=== PATIENT | female | born 1985 | race Hispanic/Latino ===

== ENCOUNTER 2024-09-20 21:27 | Emergency (ER) | payer BC ==
[~2024-09-20] VITALS: Ht 160 cm; Wt 47.2 kg
--- NOTE | 2024-09-20 21:34 | NUR ---
UA CUP PROVIDED
[2024-09-20] MEDS ORDERED: 0.9%NACL 1000ML 1,000 ML IV ONE (22:00)
--- NOTE | 2024-09-20 22:45 | HMCIMG ---
EXAM: CR Chest, 1 view CLINICAL HISTORY: Chest pain. COMPARISON: None provided. FINDINGS: The lungs show no infiltrates or other acute findings. No pleural effusion or pneumothorax. The cardiomediastinal silhouette is within normal limits. No acute osseous abnormality. IMPRESSION: No acute cardiopulmonary process is evident. /[place]
[2024-09-20 22:51] LABS: IMMATURE GRANULOCYTE ABSOLUTE 0.04 K/uL (0-1); NUCLEATED RED BLOOD CELLS 0.0 % (0.0-0.19); PLATELET COUNT (AUTO) 371 K/uL (130-400); RED BLOOD CELL COUNT(AUTO) 4.21 MIL/uL (4.00-5.50); RED CELL DISTRIBUTION WIDTH 11.6 % (11.0-15.5); WHITE BLOOD COUNT (AUTO) 9.6 K/uL (4.8-10.8)
[2024-09-20 22:53] LABS: ADD UA MICROSCOPIC YES; APPEARANCE,URINE CLEAR (CLEAR); GLUCOSE, URINE (UA) NEGATIVE (NEGATIVE); LEUKOCYTE ESTERASE ,URINE NEGATIVE Leu/uL (NEGATIVE); NITRATE,URINE NEGATIVE (NEGATIVE); OCCULT BLOOD,URINE MODERATE (NEGATIVE)
[2024-09-20 22:57] LABS: CREATININE 0.5 mg/dL (0.5-1.0); GLOMERULAR FILTR. RATE CALC 122.0 mL/min (>90); GLUCOSE,RANDOM 104.0 mg/dL (70-105); SODIUM SERUM 138.0 mmol/L (136-145); UREA NITROGEN, BLOOD 9.0 mg/dL (7-18)
[2024-09-20 23:01] LABS: HCG,QUALITATIVE URINE NEGATIVE (NEGATIVE)
[2024-09-20 23:02] LABS: CREATINE KINASE, TOTAL 45.0 U/L (21-232)
[2024-09-20] MEDS: ASPIRIN 325MG TAB PO ONE (23:37)
--- NOTE | 2024-09-21 00:21 | ERN ---
ED Note History of Present Illness Stated Complaint: PALPITATIONS, CP Chief Complaint: Chest Pain Time Seen by MD: 21:32 Time Seen by Midlevel: 21:32 Dictation: The patient is a 39-year-old female with a history of hypothyroidism who presents to the emergency department with complaints of palpitations onset an hour ago. Patient reports he occasionally has palpitations but this time she felt him longer and more frequent. Reports some nausea and some chest pressure. Allergies: Coded Allergies: Sulfa (Sulfonamide Antibiotics) (Unverified Allergy, Unknown, 07/07/24) quinine (Unverified Allergy, Unknown, 07/07/24) Past Medical History Past Medical History: Hypothyroid, Other Additional Past Medical Hx: MITRAL VALVE PROLAPSE Surgical History: None RN Note Reviewed/Agreed w/PFSH: Yes Review of System Dictation Constitutional: Negative for fever,chills, and weight loss Eyes: Negative for injury, pain,redness, and discharge ENT: Negative for injury,pain or swelling Cardiovascular: Negative for and edema positive for palpitations, chest pain Respiratory: Negative for shortness of breath, cough, and wheezing, Abdomen/GI: Negative for abdominal pain, nausea, vomiting, diarrhea, and constipation Back: Negative for injury and pain : Negative for injury, bleeding and discharge MS/Extremity: Negative for injury and deformity Skin: Negative for rash, and discoloration Neuro: Negative for headache, weakness, numbness, tingling, and seizure Psych: Negative for suicide ideation, homicidal ideation, and hallucinations Initial Vital Sign VS Vital Signs Date Time Temp Pulse Resp B/P (MAP) Pulse Ox O2 Delivery O2 Flow Rate FiO2 09/20/24 21:29 97.2 110 20 109/76 100 Room Air Physical Exam Dictation Vital Signs reviewed General Appearance: Alert, oriented x 3, no acute distress, well developed, nourished. Head and Face: non-traumatic. Eyes: PERRL, pink conjunctivas, eyelid no trauma, anterior chamber with arcus senilis. Ears: Pinnas intact and no signs of trauma or erythema ear canals clear and no discharge TM no erythema Nose: No discharge, no bleeding. Oropharynx: Mouth normal, tongue pink. pharynx clear,no erythema, tonsils no exudates, no abscesses noted, mucous membrane moist Neck: Supple, non-tender, no thyromegaly, no masses, no JVD, no bruits Breast:Deferred Chest:No tenderness, no crepitus, no paradoxical movement, no retractions Lungs:Clear, well-ventilated, symmetric, no rales, no wheezing, no rhonchi, no stridor, good breath sounds bilaterally Heart: Regular rate, regular rhythm, no murmur, no gallops Vascular: no peripheral edema, Abdomen: Soft, positive bowel sounds, nondistended, no guarding, nontender, no rebound, no masses no hepatomegaly, no splenomegaly, no Gerard's sign, no hernias. Rectal: Deferred Genital: Deferred Neurological: Normal speech, motor function intact, sensory function intact Musculoskeletal: Neck nontender, full range of motion, back nontender, full range of motion, Extremities: nontender, full range of motion Skin: Color pink, dry, no turgor, no rash, no lacerations, no abrasions, no cont usions. Lymphatic: Deferred Results (Laboratory/Radiology) Laboratory/Radiology Laboratory Tests Test 09/20/24 22:25 09/20/24 23:56 White Blood Count 9.6 K/uL (4.8-10.8) Red Blood Count 4.21 MIL/uL (4.00-5.50) Hemoglobin 12.5 g/dL (12.0-16.0) Hematocrit 37.7 % (36-48) Mean Corpuscular Volume 89.5 fL (79-99) Mean Corpuscular Hemoglobin 29.7 pg (27.0-33.0) Mean Corpuscular Hemoglobin Concent 33.2 g/dL (32.0-36.0) Red Cell Distribution Width 11.6 % (11.0-15.5) Platelet Count 371 K/uL (130-400) Mean Platelet Volume 10.1 fL (7.5-10.5) Immature Granulocyte % (Auto) 0.4 % (0-1) Neutrophils (%) (Auto) 65.8 % (40.0-77.0) Lymphocytes (%) (Auto) 24.5 % (21.0-51.0) Monocytes (%) (Auto) 7.5 % (3.0-13.0) Eosinophils (%) (Auto) 1.4 % (0.0-8.0) Basophils (%) (Auto) 0.4 % (0.0-5.0) Neutrophils # (Auto) 6.3 K/uL (1.8-7.7) Lymphocytes # (Auto) 2.4 K/uL (1.0-4.8) Monocytes # (Auto) 0.7 K/uL (0.1-1.0) Eosinophils # (Auto) 0.13 K/uL (0.00-0.70) Basophils # (Auto) 0.04 K/uL (0.00-0.20) Absolute Immature Granulocyte (auto 0.04 K/uL (0-1) Nucleated Red Blood Cells 0.0 % (0.0-0.19) Urine Color COLORLESS (YELLOW) Urine Appearance CLEAR (CLEAR) Urine pH 6.0 (5.0-8.0) Urine Specific [place] 1.001 (1.001-1.031) Urine Protein NEGATIVE mg/dL (NEGATIVE) Urine Glucose (UA) NEGATIVE mg/dL (NEGATIVE) Urine Ketones NEGATIVE mg/dL (NEGATIVE) Urine Occult Blood MODERATE (NEGATIVE) H Urine Nitrate NEGATIVE (NEGATIVE) Urine Bilirubin NEGATIVE mg/dL (NEGATIVE) Urine Urobilinogen 0.2 mg/dL (0.2-1.0) Urine Leukocyte Esterase NEGATIVE [place]/uL Urine RBC 0-1 /HPF (0-1) Urine WBC 0-1 /HPF (0-1) Urine Bacteria None /HPF (None Seen) Urine HCG, Qualitative NEGATIVE (NEGATIVE) Sodium Level 138 mmol/L (136-145) Potassium Level 3.4 mmol/L (3.5-5.1) L Chloride Level 102 mmol/L (101-111) Carbon Dioxide Level 31 mmol/L (21-32) Blood Urea Nitrogen 9 mg/dL (7-18) Creatinine 0.5 mg/dL (0.5-1.0) Glomerular Filtration Rate Calc 122 mL/min (>90) Random Glucose 104 mg/dL (70-105) Total Calcium 9.2 mg/dL (8.5-10.1) Magnesium Level 2.10 mg/dL (1.80-2.40) Total Creatine Kinase 45 U/L (21-232) Troponin I High Sensitivity < 4 ng/L (4-50) L < 4 ng/L (4-50) L REASON: CHEST PAIN ORDERING PHYSICIAN: MAITE HARPER MD PROCEDURE: CXR1VW - CHEST 1VW EXAM: CR Chest, 1 view CLINICAL HISTORY: Chest pain. COMPARISON: None provided. FINDINGS: The lungs show no infiltrates or other acute findings. No pleural effusion or pneumothorax. The cardiomediastinal silhouette is within normal limits. No acute osseous abnormality. IMPRESSION: No acute cardiopulmonary process is evident. /[place] Labs Reviewed?: Yes EKG: (+) rhythm (Sinus tachycardia) EKG Comment: Date:09/20/2024 Time:2128 Ventricular rate:109 ME interval:136 QRS duration:77 QT/QTc:338/455 EKG interpretation: Sinus tachycardia Reviewed by ED Attending no STEMI ED Course ED Course Orders Procedure Category Date Status Time Vital Signs Per CPOE 09/20/24 Transmitted Routine 21:29 Chest 1vw RAD 09/20/24 Resulted 21:29 12 Lead Ekg Tracing- EKG 09/20/24 Logged Technical 21:29 Oxygen By Nc/Pulse Ox CPOE 09/20/24 Transmitted 21:29 Maintain Iv CPOE 09/20/24 Transmitted 21:29 Iv Insertion CPOE 09/20/24 Transmitted 21:29 Cardiac Monitoring CPOE 09/20/24 Transmitted 21:29 Pulse Oximetry With CPOE 09/20/24 Transmitted Vs And Prn 21:29 Cbc With Differential LAB 09/20/24 Complete 21:29 Activity: Br W/Brp CPOE 09/20/24 Transmitted With Assist 21:29 Creatine Kinase, Total LAB 09/20/24 Complete 21:29 Troponin I High LAB 09/20/24 Complete Sensitivity 21:29 Urinalysis Profile LAB 09/20/24 Complete 21:29 Basic Metabolic Panel LAB 09/20/24 Complete 21:29 0.9%Nacl 1000ml (Ns PHA 09/20/24 Complete 1000ml) 22:00 Aspirin 325mg Tab PHA 09/20/24 Complete (Aspirin 325mg Tab) 22:00 Magnesium LAB 09/20/24 Complete 21:29 ,Urine Test LAB 09/20/24 Complete 21:29 Troponin I High LAB 09/20/24 Complete Sensitivity 23:20 Current Medications Medications (Trade) Dose Ordered Sig/Nancy Route PRN Reason Start Time Stop Time Status Last Admin Dose Admin Aspirin (Aspirin 325mg Tab) 325 mg ONCE ONCE PO 09/20/24 22:00 09/20/24 22:01 DC 09/20/24 23:37 Sodium Chloride 1,000 ml @ 0 mls/hr ONCE ONCE IV 09/20/24 22:00 09/20/24 22:01 DC Vital Signs Date Time Temp Pulse Resp B/P (MAP) Pulse Ox O2 Delivery O2 Flow Rate FiO2 09/20/24 21:29 97.2 110 20 109/76 100 Room Air HEART Score Response (Comments) Value History: Low suspicion (0) 0 EKG: Normal 0 Age: < 45yrs (0) 0 Risk Factors: No known risk factors (0) 0 Initial Troponin: Normal limit (0) 0 HEART Score Risk: Low Risk for MACE (1-3) Total 0 Medical Decision Making MDM The patient is a 39-year-old female with a history of hypothyroidism who presents to the emergency department with complaints of palpitations onset an hour ago. Patient reports he occasionally has palpitations but this time she felt him longer and more frequent. Reports some nausea and some chest pressure. CBC showed no leukocytosis, no anemia, chemistry showed mild hypokalemia, negative troponin x2, urinalysis unremarkable. Chest x-ray showed no acute pathology. Patient is slightly tachycardic in EKG. Patient was reassessed. Patient at this time reports she feels better and would like to be discharged home. Patient at this time refuses IV fluids. On physical exam patient is in no acute distress, nontoxic appearance. Patient reports she has an appointment on Sunday. Patient will be discharged to follow up with PCP. Differential diagnosis: ACS, palpitations, pneumothorax, pneumonia, electrolyte imbalance Need for hospitalization: Patient does not meet criteria for hospitalization. There are no social concerns with this patient. DX & DISP Disposition: Discharge Departure Impression: Primary Impression: Palpitations Additional Impression: Chest pain with low risk for cardiac etiology Condition: Stable Additional Instructions: Your labs were unremarkable except for your potassium was slightly low. Please follow up with the primary doctor in 1-2 days. If anything worsens please return to ER. FOLLOW-UP WITH PRIMARY CARE PROVIDER IN 1 TO 2 DAYS. TAKE MEDICATIONS DIRECTED HERE IN THE EMERGENCY ROOM. OKAY TO CONTINUE HOME MEDICATIONS UNLESS OTHERWISE DISCUSSED DURING YOUR VISIT IN THE EMERGENCY ROOM TODAY. RETURN TO YOUR NEAREST EMERGENCY ROOM IF SYMPTOMS WORSEN OR IF THERE IS NO IMPROVEMENT. CALL 911 IF YOU NEED IMMEDIATE ASSISTANCE. TAKE TYLENOL [id number] NE EDED AND IF NO CONTRAINDICATIONS ARE PRESENT. INCREASE ORAL HYDRATION. A WOUND CULTURE OR URINE CULTURE WAS ORDERED HERE IN THE EMERGENCY ROOM DEPARTMENT PLEASE FOLLOW-UP WITH PRIMARY CARE PROVIDER AND ADVISE THEM TO GET REPEAT PORTS FROM OUR FACILITY. IF YOU HAD ANY LAURA WRAP/SPLINTS THAT WERE APPLIED HERE, PLEASE DO NOT REMOVE THEM UNTIL YOU SEE YOUR PRIMARY CARE OR SPECIALTY. Referrals: YUSUF RAINEY DRAPERY CUTTER (PCP) Time of Disposition: 00:39 I have reviewed the case, and I agree with, Diagnosis and Plan LYNNETTE RODRIGUEZ [facility] Sep 21, 2024 00:21
[2024-09-21 00:30] VITALS: BP 143/75; PULSE 90; RESP 20; TEMP 98; O2SAT 99
--- NOTE | 2024-09-21 12:58 | EKG ---
[facility] Test Date: 2024-09-20 Test Time: 21:29:34 Pat Name: JALEEL NUNES Department: ED Room: Gender: F Segregator: [id number] : [id number] Requested By: MAITE HARPER Order Number: [id number] Reading MD: Albert Tyler Measurements Intervals [place] Rate: 109 P: 64 MS: 136 QRS: 51 QRSD: 77 T: -12 QT: 338 QTc: 455 Interpretive Statements Sinus tachycardia No previous ECG available for comparison Electronically Signed On 09-22-2024 19:14:31 CDT by Albert Tyler Please click the below link to view image of tracing.
== END 2024-09-21 00:52 | disposition home or self-care (01) ==
LOC: EDH 21:27
DX: R00.2 Palpitations (principal); R07.89 Other chest pain; R11.0 Nausea; E03.9 Hypothyroidism, unspecified; Z88.2 Allergy status to sulfonamides
CPT/HCPCS: 36415; 71045; 80048; 81001; 81025; 82550; 83735; 84484; 85025; 93005; 99284